=== PATIENT | male | born 2000 | race Hispanic/Latino ===

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

== ENCOUNTER 2022-09-20 09:41 | Emergency (ER) | payer OTHER, SELFPAY ==
[2022-09-20 09:57] VITALS: BP 139/53; PULSE 85; RESP 14; TEMP 36.4; O2SAT 99
[2022-09-20 11:37] VITALS: PULSE 65; RESP 18; O2SAT 96
[2022-09-20 12:26] LABS: Strep Group A RT-PCR NOT DETECTED (Negative)
[2022-09-20 12:37] LABS: Influenza A QL RT-PCR Negative (Negative); Influenza B QL RT-PCR Negative (Negative); RSV RNA, RT-PCR Negative (Negative); SARS-CoV-2 RNA PCR Negative
--- NOTE | 2022-09-20 12:37 | ED.URI ---
HPI - URI/Sore Throat General Chief Complaint: Upper Respiratory Infection Stated Complaint: throat pain Time Seen by Provider: 09/20/22 11:15 Source: patient Mode of arrival: ambulatory Limitations: no limitations History of Present Illness HPI Narrative: Patient is a 22-year-old male who presents the ED with report of upper respiratory symptoms. Patient reports having a sore throat, headache, congestion, rhinorrhea, mild cough for the last 1 week. He denies any body aches, documented fever, nausea, vomiting, abdominal pain, difficulty breathing or swallowing, chest pain. Denies any sick contacts. He is vaccinated for COVID. He has been taking DayQuil and NyQuil for his symptoms. Related Data Allergies Allergy/AdvReac Type Severity Reaction Status Date / Time No Known Allergies Allergy Mild Verified 08/01/12 12:12 Review of Systems Review of Systems: CONSTITUTIONAL: Denies fever, chills, or sweats. ENT: See HPI. CARDIOVASCULAR: Denies chest pain. RESPIRATORY: See HPI. GASTROINTESTINAL: Denies abdominal pain, nausea, vomiting. GENITOURINARY: Denies dysuria or hematuria. SKIN: Denies rash or itching. MUSCULOSKELETAL: Denies back pain, joint pain, or myalgia. NEUROLOGIC: See HPI. All systems reviewed & are unremarkable except as noted in HPI and below PMFSH Past Medical History Medical History (Updated 09/20/22 @ 12:49 by Johanny Culver PA-C) No pertinent past medical history Surgical History Surgical History (Updated 09/20/22 @ 12:49 by Johanny Culver PA-C) No pertinent past surgical history Social History Social History Smoking status: Never smoker Alcohol intake: never Substance use: never Gender identity (if verbalized by the patient): Male Exam Narrative: GENERAL: Well appearing, well-nourished, non-toxic, in no acute distress. HEAD: Normocephalic, atraumatic. EYES: PERRLA/EOMI, conjunctiva clear. ENT: Minimal posterior pharynx erythema. No tonsillar hypertrophy or exudate. Uvula midline. Tolerating secretions. No signs of airway compromise NECK: Supple. No adenopathy, no masses. RESPIRATORY: Airway patent, respirations nonlabored. Clear to auscultation bilaterally, no rales, rhonchi, wheezing. CARDIOVASCULAR: Regular rate and rhythm without murmurs, rubs, or gallops. Radial pulses 2+ and equal bilaterally. MUSCULOSKELETAL: Moves all extremities. Strength/ROM intact without gross deformities. SKIN: Warm, dry, normal color. No rashes. NEURO: A&O X3. Speech clear. Cranial nerves II-XII grossly intact. Steady gait. No ataxic movements. PSYCHIATRIC: Appropriate mood and affect. Normal interaction. Course Vital Signs Vital signs: Vital Signs Temperature 97.5 F L 09/20/22 09:57 Pulse Rate 85 09/20/22 09:57 Respiratory Rate 14 09/20/22 09:57 Blood Pressure 139/53 L 09/20/22 09:57 Pulse Oximetry 99 09/20/22 09:57 Oxygen Delivery Room Air 09/20/22 09:57 Temperature 97.5 F L 09/20/22 09:57 Pulse Rate 72 09/20/22 12:54 Respiratory Rate 18 09/20/22 12:54 Blood Pressure 127/64 09/20/22 12:54 Pulse Oximetry 98 09/20/22 12:54 Oxygen Delivery Room Air 09/20/22 09:57 MDM - URI/Sore Throat MDM Narrative Medical decision making narrative: Patient presented to ED with 1 week history of upper respiratory symptoms. Vital stable upon arrival. Afebrile. Patient in no acute distress. No concerning findings on exam. No signs of airway compromise. No tonsillar hypertrophy or exudate. Influenza, RSV, COVID, strep negative. Discussed that symptoms likely related to viral upper respiratory infection. Advised to continue supportive therapy for symptom relief and follow-up with primary care doctor for further evaluation. No report of nausea, vomiting, abdominal pain, chest pain, difficulty breathing. Patient will be discharged. Given return precautions. He agrees with plan. Discharged in s
[2022-09-20 12:54] VITALS: BP 127/64; PULSE 72; RESP 18; O2SAT 98
== END 2022-09-20 12:54 | disposition home or self-care (01) ==
PROVIDERS: Emergency Provider Physician Assistant
DX: J06.9 Acute upper respiratory infection, unspecified (principal); Z20.822 Contact with and (suspected) exposure to COVID-19
CPT/HCPCS: 87637; 87651; 99283

== ENCOUNTER 2023-03-23 19:16 | Emergency (ER) | payer OTHER, SELFPAY ==
[2023-03-23 19:17] VITALS: BP 140/84; PULSE 76; RESP 14; TEMP 36.4; O2SAT 100
--- NOTE | 2023-03-23 19:37 | ED.GENADULT ---
HPI - General Adult General Chief complaint: Dental/Oral Stated complaint: toothache Time Seen by Provider: 03/23/23 19:20 History of Present Illness HPI narrative: this is a 22-year-old male presenting with dental pain. Dental pain has been going on for 4 hours. He has used Orajel with no relief. Denies fever chills nausea vomiting diarrhea. No swelling in his mouth difficulty swallowing shortness of breath. Patient has not seen dentist years. Related Data Allergies Allergy/AdvReac Type Severity Reaction Status Date / Time No Known Allergies Allergy Mild Verified 03/23/23 19:17 [facility] Past Medical History Medical History No pertinent past medical history Surgical History Surgical History (Updated 09/20/22 @ 12:49 by Johanny Culver PA-C) No pertinent past surgical history Social History Social History Smoking status: Never smoker Alcohol intake: never Substance use: never Gender identity (if verbalized by the patient): Male Exam Narrative: APPEARANCE: No apparent distress. Head: Poor dentition, fillings over the right upper molars the pain is located, no abscess EYES: EOMI, NOSE: Atraumatic NECK: Trachea midline RESPIRATORY: No increased rate of breathing CARDIOVASCULAR: RRR, ABDOMINAL: Non-distended MUSCULOSKELETAl: No obvious deformities NEURO: Alert. Moving 4/4 extremities SKIN:: Warm, dry. Normal color PSYCHIATRIC: Normal affect Course Vital Signs Vital signs: Vital Signs Temperature 97.5 F L 03/23/23 19:17 Pulse Rate 76 03/23/23 19:17 Respiratory Rate 14 03/23/23 19:17 Blood Pressure 140/84 03/23/23 19:17 Pulse Oximetry 100 03/23/23 19:17 Oxygen Delivery Room Air 03/23/23 19:17 Temperature 97.5 F L 03/23/23 19:17 Pulse Rate 76 03/23/23 19:17 Respiratory Rate 14 03/23/23 19:17 Blood Pressure 140/84 03/23/23 19:17 Pulse Oximetry 100 03/23/23 19:17 Oxygen Delivery Room Air 03/23/23 19:17 Procedures Nerve Block Nerve Block 1: Nerve block date: 03/23/23 Local Anesthetic: bupivacaine 0.25% Amount of anesthesia used (mL): 4 Side: right Intraoral Nerve Block: superior alveolar Procedure Successful: Yes Patient Tolerated Procedure: well Complications: none Medical Decision Making MDM Narrative Medical decision making narrative: -Presentation: 22-year-old presenting with dental pain. -DDX includes but is not limited to: Dental caries, dental infection -Social determinants of health: patient works in [employer], lives with his mom -Procedures: superior alveolar block -Interventions: Motrin, Tylenol, amoxicillin -Shared decision making / Disposition: patient will be discharged with a list of dentists. -RX Motrin Tylenol Robaxin Vital Signs Vital Signs: Vital Signs Temperature 97.5 F L 03/23/23 19:17 Pulse Rate 76 03/23/23 19:17 Respiratory Rate 14 03/23/23 19:17 Blood Pressure 140/84 03/23/23 19:17 Pulse Oximetry 100 03/23/23 19:17 Oxygen Delivery Room Air 03/23/23 19:17 Temperature 97.5 F L 03/23/23 19:17 Pulse Rate 76 03/23/23 19:17 Respiratory Rate 14 03/23/23 19:17 Blood Pressure 140/84 03/23/23 19:17 Pulse Oximetry 100 03/23/23 19:17 Oxygen Delivery Room Air 03/23/23 19:17 Discharge Plan Discharge Clinical Impression: Pain, dental Patient Disposition: Home, Self-Care Condition: Stable Instructions: Antibiotic Form, Toothache (ED) Additional Instructions: Take Motrin Tylenol for pain. Amoxicillin for possible infection. Follow-up with dentist as soon as possible. Prescriptions: New ibuprofen 800 mg tablet 800 mg PO TID PRN (Reason: pain) 7 Days Qty: 21 0RF acetaminophen 500 mg tablet 1,000 mg PO TID PRN (Reason: yajaira) 7 Days Qty: 42 0RF amoxicillin 500 mg capsule
[2023-03-23] MEDS: IBUPROFEN 400 MG TABLET 800 MG PO (19:44)
[2023-03-23] MEDS: ACETAMINOPHEN 500 MG TABLET 1000 MG PO (19:45)
[2023-03-23] MEDS: AMOXICILLIN 500 MG CAPSULE PO (19:45)
--- NOTE | 2023-03-23 19:53 | PC.NURSE ---
ERP Dr Hickey at bedside at this time performing procedure.
== END 2023-03-23 20:24 | disposition home or self-care (01) ==
PROVIDERS: Emergency Provider Emergency Medicine
DX: K08.89 Other specified disorders of teeth and supporting structures (principal)
CPT/HCPCS: 64999; 99283; A9270

== ENCOUNTER 2023-07-28 12:19 | Emergency (ER) | payer SELFPAY ==
[2023-07-28 12:38] VITALS: BP 141/80; PULSE 84; RESP 18; TEMP 36.8; O2SAT 99
--- NOTE | 2023-07-28 13:15 | ED.EAR ---
HPI - Ear Problem General Chief complaint: Ear Stated complaint: ear pain Time Seen by Provider: 07/28/23 12:42 History of Present Illness HPI Narrative: Patient is a 22-year-old male who presents ER with right ear pain. Began last night. Has some holiday hearing on the right side. No drainage. He did not stick anything in his ear. No sinus congestion or sore throat or cough. No pain with manipulation of the ear. Related Data Allergies Allergy/AdvReac Type Severity Reaction Status Date / Time No Known Allergies Allergy Mild Verified 03/23/23 19:17 Review of Systems Constitutional: Constitutional: Denies chills and Denies fever(s) ENT: Denies nasal congestion and Denies sore throat Comments: Right-sided ear pain and muffled hearing PMFSH Past Medical History Medical History No pertinent past medical history Surgical History Surgical History (Updated 09/20/22 @ 12:49 by Johanny Culver PA-C) No pertinent past surgical history Social History Social History Smoking status: Never smoker Alcohol intake: never Substance use: never Gender identity (if verbalized by the patient): Male Exam Narrative: GENERAL: Well-appearing, well-nourished, and in no acute distress. HEAD: Normocephalic, atraumatic. ENT: Mucous membranes moist. right ear consistent with otitis media with perforation. No mastoiditis. No infection external ear. Normal left TM and ear canal. NECK: Supple. NEURO: Alert and oriented x3. PSYCH: Normal mood and affect. Course Course Emergency Course: Patient resting comfortably. Discussed treatment plan. Discharged home. Recommend he not submerge himself more or get water in his ear until it is fully healed. Vital Signs Vital signs: Vital Signs Temperature 98.3 F 07/28/23 12:38 Pulse Rate 84 07/28/23 12:38 Respiratory Rate 18 07/28/23 12:38 Blood Pressure 141/80 H 07/28/23 12:38 Pulse Oximetry 99 07/28/23 12:38 Oxygen Delivery Room Air 07/28/23 12:38 Temperature 98.3 F 07/28/23 12:38 Pulse Rate 84 07/28/23 12:38 Respiratory Rate 18 07/28/23 12:38 Blood Pressure 141/80 H 07/28/23 12:38 Pulse Oximetry 99 07/28/23 12:38 Oxygen Delivery Room Air 07/28/23 12:38 Medical Decision Making Vital Signs Vital Signs: Vital Signs Temperature 98.3 F 07/28/23 12:38 Pulse Rate 84 07/28/23 12:38 Respiratory Rate 18 07/28/23 12:38 Blood Pressure 141/80 H 07/28/23 12:38 Pulse Oximetry 99 07/28/23 12:38 Oxygen Delivery Room Air 07/28/23 12:38 Temperature 98.3 F 07/28/23 12:38 Pulse Rate 84 07/28/23 12:38 Respiratory Rate 18 07/28/23 12:38 Blood Pressure 141/80 H 07/28/23 12:38 Pulse Oximetry 99 07/28/23 12:38 Oxygen Delivery Room Air 07/28/23 12:38 Discharge Plan Discharge Clinical Impression: Acute otitis media of right ear with perforated tympanic membrane Patient Disposition: Home, Self-Care Condition: Stable Instructions: Antibiotic Form, Ear Infection (ED) Additional Instructions: Return to the ER if you have worsening pain, you can hear, you can keep down food/water/ medication, or you have additional concerns. Prescriptions: New amoxicillin-pot clavulanate 875-125 mg tablet 1 tablet PO Q12H Qty: 20 0RF No Action ofloxacin 0.3 % drops 10 drop EACH EAR BID 7 Days Qty: 10 0RF ibuprofen 800 mg tablet 800 mg PO TID PRN (Reason: pain) 7 Days Qty: 21 0RF acetaminophen 500 mg tablet 1,000 mg PO TID PRN (Reason: yajaira) 7 Days Qty: 42 0RF amoxicillin 500 mg capsule 500 mg PO Q12H Qty: 20 0RF Follow-up/Referrals: Colin,FRIDA Bello [Primary Care Provider] - 1 Week
== END 2023-07-28 13:40 | disposition home or self-care (01) ==
PROVIDERS: Emergency Provider Emergency Medicine; PCP Physician Assistant
DX: H66.91 Otitis media, unspecified, right ear (principal); H72.91 Unspecified perforation of tympanic membrane, right ear
CPT/HCPCS: 99283

== ENCOUNTER 2023-08-01 14:32 | Emergency (ER) | payer SELFPAY ==
[2023-08-01 14:39] VITALS: BP 134/81; PULSE 81; RESP 16; TEMP 37.4; O2SAT 100
--- NOTE | 2023-08-01 14:44 | ED.EAR ---
HPI - Ear Problem General Chief complaint: Ear Stated complaint: Right Ear Irritation Source: patient Mode of arrival: ambulatory Limitations: no limitations History of Present Illness HPI Narrative: 22-year-old male presented for complaint of right ear muffled hearing. Denies significant pain. Onset 4 days. He was seen at the ER the day of onset, and prescribed Augmentin. He states he does not think it is working. Denies tinnitus, ear drainage, sinus congestion, sore throat, n/v/d/f/c. per notes, he was diagnosed with otitis media with TM rupture MD Complaint: ear pain Related Data Allergies Allergy/AdvReac Type Severity Reaction Status Date / Time No Known Allergies Allergy Mild Verified 08/01/23 14:40 Review of Systems Review of Systems: CONSTITUTIONAL: Denies malaise, chills, or fever. EYES: Denies visual changes, redness, or discharge. ENT: Denies rhinorrhea, congestion, sinus pain, and sore throat. Reports ear muffled hearing CARDIOVASCULAR: Denies chest pain, palpitations, or edema. RESPIRATORY: Denies cough or dyspnea. GASTROINTESTINAL: Denies abdominal pain, nausea, vomiting, diarrhea SKIN: Denies rash or itching. MUSCULOSKELETAL: Denies myalgia. NEUROLOGIC: Denies headache. All systems reviewed & are unremarkable except as noted in HPI and below PMFSH Past Medical History Medical History No pertinent past medical history Surgical History Surgical History No pertinent past surgical history Social History Social History Smoking status: Never smoker Alcohol intake: never Substance use: never Gender identity (if verbalized by the patient): Male Comments At time of signature, agree with nursing past medical, surgical, social and family history. There is no relevant family history pertinent to the presenting complaint Exam Narrative: GENERAL: Well-appearing EYES: conjunctivae clear ENT: Nares clear. Mucous membranes moist. Left TM pearly acuña with dull light reflex; Right TM visualized area appears intact, mild swelling to canal with small amount of drainage; no tragal tenderness. Oropharynx not erythematous without lesions. NECK: Supple. No lymphadenopathy CHEST: Clear to auscultation, breath sounds equal. SKIN: Warm, dry, no rash. PSYCH: Flat affect, minimal eye contact. Speaks minimally. Course Course Emergency Course: Patient is aware of diagnosis, understands and agrees to treatment plan. Anticipatory guidance given. Patient agrees to follow-up as directed and is aware of reasons to seek care at the emergency department. Portions of this record may have been created with voice recognition software Level of Care: Express Care Visit Vital Signs Vital signs: Vital Signs Temperature 99.4 F 08/01/23 14:39 Pulse Rate 81 08/01/23 14:39 Respiratory Rate 16 08/01/23 14:39 Blood Pressure 134/81 08/01/23 14:39 Pulse Oximetry 100 08/01/23 14:39 Temperature 99.4 F 08/01/23 14:39 Pulse Rate 81 08/01/23 14:39 Respiratory Rate 16 08/01/23 14:39 Blood Pressure 134/81 08/01/23 14:39 Pulse Oximetry 100 08/01/23 14:39 Reviewed Medical Decision Making MDM Narrative Medical decision making narrative: Will continue Augmentin, adding Ciprodex gtts. Advised supportive measures and signs/symptoms to go to the ER. Patient is appropriate for outpatient treatment and follow-up. Differential Diagnosis Differential Diagnosis: Coronavirus, strep pharyngitis, allergic rhinitis, upper respiratory tract infection, sinusitis, rhinosinusitis, nasopharyngitis, viral pharyngitis, otitis media, otitis externa, eustachian tube dysfunction, foreign body, cerumen impaction. Vital Signs Vital Signs: Vital Signs Temperature 99.4 F 08/01/23 14:39 Pulse Rate 81 08/01/23 14:39 Respiratory Rate 16
== END 2023-08-01 14:58 | disposition home or self-care (01) ==
PROVIDERS: Emergency Provider Nurse Practitioner Family; PCP Physician Assistant
DX: H60.91 Unspecified otitis externa, right ear (principal)
CPT/HCPCS: 99213; G0463

== ENCOUNTER 2023-09-08 02:48 | Emergency (ER) | payer SELFPAY ==
--- NOTE | ~2023-09-08 | XR_ITS ---
Clinical Indication: Chest pain PA and lateral views of the chest: Comparison: None Findings: The lungs are clear, without evidence of focal consolidation or pleural effusion. Cardiome diastinal silhouette is within normal limits. Bones and soft tissues are unremarkable. Impression: Normal chest. Reviewed, dictated and finalized at location . [facility] NURSE Impression: Normal chest.
--- NOTE | 2023-09-08 02:50 | ECG_ITS ---
Measurements Intervals [place] Rate: 103 P: 40 AK: 159 QRS: 67 QRSD: 97 T: -14 QT: 313 QTc: 410 Interpretive Statements SINUS TACHYCARDIA MINIMAL Q WAVES- INFERIOR LEADS BORDERLINE ST-T WAVE ABNORMALITY- ANTEROLAT/INF LEADS BORDERLINE ECG NO PREVIOUS ECG AVAILABLE FOR COMPARISON Electronically Signed On 09-08-2023 6:11:30 [employer]IGITAL ENGINEER by Lee Cardozo D.O.
[2023-09-08 02:54] VITALS: BP 152/93; PULSE 105; RESP 20; TEMP 36.4; O2SAT 100
--- NOTE | 2023-09-08 03:08 | PC.NURSE ---
Patient in xray at this time.
[2023-09-08 03:25] LABS: Basophils Absolute Auto 0.1 K/mm3 (0.0-0.1); Basophils Percent Auto 0.5 % (0.2-1.2); Eosinophils Absolute Auto 0.3 K/mm3 (0-0.3); Eosinophils Percent Auto 2.3 % (0-4.4); Hematocrit 45.6 % (42.0-52.0); Hemoglobin 15.5 g/dL (14.0-18.0); Immature Granulocyte Percent A 0.9 % (0-0.5); Lymphocytes Absolute Auto 3.86 K/mm3 (0.9-3.2); Lymphocytes Percent Auto 34.8 % (18.3-44.2); Mean Corpuscular Hemoglobin 30.5 pg (26-34); Mean Corpuscular Volume 89.8 fl (80-100); Mean Platelet Volume 9.7 fl (7.4-10.4); Monocytes Absolute Auto 0.8 K/mm3 (0.1-0.6); Monocytes Percent Auto 7.5 % (2.6-8.5); Platelet Count Result 248 k/mm3 (150-375); Red Blood Count 5.08 M/mm3 (4.6-6.20); Red Cell Distribution Width 12.2 % (11.5-14.5); White Blood Count 11.1 K/mm3 (4.5-10.0)
--- NOTE | 2023-09-08 03:30 | PC.NURSE ---
Patient does state that he did smoke marijuana earlier today.
[2023-09-08 03:35] LABS: Partial Thromboplastin Time 29.3 SECONDS (22.3-36.8); Prothrombin Time 13.7 Seconds (11.1-14.7)
[2023-09-08 03:39] LABS: Alanine Aminotransferase 37 U/L (6-50); Albumin Level 4.9 g/dL (3.5-5.1); Alkaline Phosphatase 62 U/L (38-126); Anion Gap 10 mmol/L (8-16); Aspartate Amino Transferase 27 U/L (17-59); Bilirubin,Total 0.4 mg/dL (0.2-1.3); Blood Urea Nitrogen 9 mg/dL (9-20); Calcium 9.6 mg/dL (8.4-10.2); Carbon Dioxide 28 mmol/L (22-30); Chloride 103 mmol/L (98-107); Estimated CRCL calculation 148 ml/min; Estimated Glomerular Filt Rate > 60; Glucose 129 mg/dL (65-110); Lipase 95 U/L (23-300); Potassium 3.6 mmol/L (3.4-5.0); Sodium 141 mmol/L (137-145)
[2023-09-08 03:49] LABS: Troponin I < 0.012 ng/mL (0.000-0.034)
--- NOTE | 2023-09-08 05:29 | PC.NURSE ---
Patient ambulates to the desk with steady gait to ask wait times. This RN informs patient that wait times cannot be given due to ever changing status. Patient states well I am going to leave, I am going to go to bed. This RN informed patient of risks before being seen by a provider and benefits of staying, patient a/ox4 and verbalized understanding. Patient ambulated out of the ED with a steady gait with belongings in hand.
== END 2023-09-08 05:45 | disposition left against medical advice (07) ==
LOC: ANHED 05:40
PROVIDERS: Emergency Provider Emergency Medicine; PCP Physician Assistant
DX: R06.02 Shortness of breath (principal)
CPT/HCPCS: 36415; 71046; 80053; 83690; 84484; 85025; 85610; 85730; 93005; 99199